=== PATIENT | male | born 1975 | race Asian ===

== ENCOUNTER 2016-12-17 08:59 | Inpatient (IN) | payer OTHER ==
--- NOTE | 2016-12-13 13:23 | CONS ---
DATE OF ADMISSION: 12/17/2016 DATE OF CONSULTATION: 12/12/2016 Patient to have surgery with Dr. Jesús Martinez 12/17/2016. REASON FOR CONSULTATION: Consultation requested by Dr. Jesús Martinez for medical evaluation and c learance of a 40-year-old gentleman about to have surgery on his lumbar spine. Thank you, Dr. Martinez, for allowing us to participate in the care of this patient. HISTORY OF PRESENT ILLNESS: Emi Edmonds a 40-year-old gentleman injury to his back is currently being admitted for correction of the above problem, primarily L4-L5 right microdiskectomy. Other th an his back he has not had any prior surgeries. He has not had any medical hospitalizations, has n ot broken any bones. MEDICATIONS: His only medication is Aleve. ALLERGIES: HE IS NOT ALLERGIC TO ANY MEDICATIONS. His back injury is secondary to a work injury. SOCIAL HISTORY: The patient is , has 2 daughters. He does not smoke. Alcohol socially. He does drink coffee. Has no difficulty sleeping at night and works as a nurse. FAMILY HISTORY: Father at age 37 of an RI. Mother is alive, 62, in good health. One brother and one sister in good health albeit one has some blood pressure issues. There is a family history of heart, cancer and hypertension. No strokes, diabetes or thyroid to his knowledge. REVIEW OF SYSTEMS: HEENT: Periodic migraine headaches. CARDIORESPIRATORY: Denies any chest pain or shortness of breath. GASTROINTESTINAL: No melena or hematemesis. GENITOURINARY: No urgency, frequency. MUSCULOSKELETAL: Positive for back pain. NEUROPSYCHIATRIC: Unremarkable. GENERAL HEALTH: As above. PHYSICAL EXAMINATION: VITAL SIGNS: The patient's blood pressure was 142/90, pulse was 80 and regular, respirations were 1 8, temperature 98.6. Height 64 inches, weight 150 pounds. GENERAL: The patient was noted to be a well-developed, well-nourished male, alert and cooperative, in no apparent acute distress, oriented to time, place, and person. HEAD, EARS, EYES, NOSE AND THROAT: Head was atraumatic. Eyes: Pupils were equal, reactive to ligh t and accommodation. Fundi were benign. Tympanic membranes were unremarkable. Nose was negative. Mouth was unremarkable. Fair oral hygiene was present. NECK: Supple without any rigidity. Trachea was midline. Thyroid was within normal limits. Neck v eins were flat. Carotid pulses were equal. No bruits were heard. BACK: Unremarkable. CHEST: Symmetrical. BREASTS AND AXILLARY: Did not reveal any masses. LUNGS: Clear to percussion and auscultation. HEART: PMI is fifth intercostal space at the midclavicular line. Regular sinus rhythm was noted. No significant murmurs, rubs, or gallops being elicited. ABDOMEN: Soft, good bowel sounds were noted. No significant organomegaly, masses, or tenderness. GENITALIA: Normal male external genitalia. RECTAL AND PROSTATIC: Per PCP. On his right buttock though there was a large mulberry type of skin overgrowth wart versus skin tag, approximately 3+ cm in length. EXTREMITIES: Did not reveal any clubbing, edema or cyanosis. Peripheral pulses were physiologic. SKIN: Moist and warm without any eruptions. No gross lymphadenopathy was noted. NEUROLOGIC: Grossly intact. IMPRESSION: 1. Lumbar disk disease L4-L5. 2. Stable health. DISCUSSION: Review of laboratory and other data revealed the following: The patient's chemistry pa robert revealed normal electrolytes, BUN, creatinine, glucose. Liver function tests revealed an elevat ed ALT of 179, AST of 79 both elevated; however, the patient's bilirubin and alkaline phosphatase wa s normal, possibly liver function tests related to medication or other liver issues. CBC, sed rate, UA, PT and PTT were within normal limits. The patient's EKG was normal as was his chest x-ray. DISCUSSION: Dr. Martinez, I see no contraindication to this patient undergoing current proposed buckley rgery under desired form of anesthesia. We will suggest that may be liver function tests be evaluate d as an outpatient by his primary care physician. Thank you again, Dr. Martinez, for allowing us to participate in the care of this patient. We will follow him with you during his stay at [facility]. Thank you again, Dr. Martinez, for allowing us to participate in the care of this patient. Dictated By: JEANETH BERUMEN/CLINT Conf#: [id number] DID#: [id number]
[2016-12-14 16:07] VITALS: BMI 24.6
[2016-12-17] VITALS (24 sets, daily range): BP systolic 73–166; BP diastolic 42–99; PULSE 88–106; RESP 15–19; Ht 162.6 cm; Wt 69.0 kg
[~2016-12-17] VITALS: Ht 162.6 cm; Wt 69.0 kg
[~2016-12-17 08:59] MED LIST: ESMOLOL 100 MG INJ ONE
[2016-12-17] MEDS ORDERED: LACTATED RINGER'S 1,000 ML IV* SCH (10:00)
[2016-12-17] MEDS ORDERED: CEFAZOLIN 2 GM/50 ML (PMX) 50 ML IVPB SCH (10:00)
[2016-12-17] MEDS ORDERED: PROPOFOL 100 ML ONE (11:40)
[2016-12-17] MEDS ORDERED: ROCURONIUM 50 MG INJ ONE ×2 (11:40→12:59)
[2016-12-17] MEDS ORDERED: MIDAZOLAM 1 MG/ML 2 ML INJ ONE (11:41)
[2016-12-17] MEDS ORDERED: FENTAnyl 50 MCG/ML VIAL ONE ×2 (11:41→13:39)
[2016-12-17] MEDS ORDERED: SURGIFOAM POWDER 1 GM KIT ONE (11:43)
[2016-12-17] MEDS ORDERED: BUPIVACAINE 0.25%/EPI (SDV) 30 ML INJ ONE (11:43)
[2016-12-17] MEDS ORDERED: THROMBIN 5000 UNIT VIAL ONE ×2 (11:44→13:28)
[2016-12-17] MEDS ORDERED: POLYMYXIN/BACITRACIN 1L IRRIG ONE (11:44)
--- NOTE | 2016-12-17 12:21 | HPN ---
Date/Time of Note Date/Time of Note DATE: 12/17/16 TIME: 12:21 Interval H&P Admission Note Pt. seen H&P reviewed: No system changes ANGELICA DOAN MD Dec 17, 2016 12:21
[2016-12-17] MEDS ORDERED: METOCLOPRAMIDE 10 MG INJ ONE (12:37)
[2016-12-17] MEDS ORDERED: ONDANSETRON 4 MG INJ ONE (12:37)
[2016-12-17] MEDS ORDERED: DEXAMETHASONE 4 MG/ML 1 ML INJ ONE (12:37)
[2016-12-17] MEDS ORDERED: CA CHLORIDE 10% 10 ML SYRINGE ONE (12:50)
[2016-12-17] MEDS ORDERED: CEFAZOLIN 1 GM INJ ONE (12:56)
[2016-12-17] MEDS ORDERED: LABETALOL HCL 20MG INJ ONE (12:59)
[2016-12-17] MEDS ORDERED: DIPHENHYDRAMINE 50 MG INJ IV PRN ×2 (13:30→14:30)
[2016-12-17] MEDS ORDERED: METOCLOPRAMIDE 10 MG INJ IV PRN (13:30)
[2016-12-17] MEDS ORDERED: ONDANSETRON 4 MG INJ IV PRN ×2 (13:30→14:30)
[2016-12-17] MEDS ORDERED: morphine (1 MG/ML) 10ML SYRINGE IV PRN ×3 (13:30)
[2016-12-17] MEDS ORDERED: HYDROmorphONE (0.2 MG/ML) 10ML SYG IV PRN ×3 (13:30)
[2016-12-17] MEDS ORDERED: LABETALOL HCL 20MG INJ IV PRN (13:30)
[2016-12-17] MEDS ORDERED: FENTAnyl 50 MCG/ML VIAL IV PRN ×3 (13:30)
[2016-12-17] MEDS ORDERED: MEPERIDINE 25 MG INJ IV PRN (13:30)
[2016-12-17] MEDS ORDERED: NEOSTIGMINE 3 MG/3 ML SYRINGE ONE (13:41)
[2016-12-17] MEDS ORDERED: GLYCOPYRROLATE 1 MG INJ ONE (13:41)
[2016-12-17] MEDS: D5W-0.45 NACL + KCL 20 MEQ 1,000 ML IV SCH ×2 (14:15→16:22)
[2016-12-17] MEDS ORDERED: ALBUTEROL 0.5% (NEB) 2.5 MG/0.5 ML AMP ONE (14:23)
[2016-12-17] MEDS ORDERED: AL HYDROX/MG HYDROX/SIMETH 30 ML CUP PO PRN (14:30)
[2016-12-17] MEDS ORDERED: BISACODYL 10 MG SUPP PR PRN (14:30)
[2016-12-17] MEDS ORDERED: HYDROmorphONE 0.2 MG/ML PCA IV SCH (14:30)
[2016-12-17] MEDS ORDERED: ALBUTEROL 0.083% (NEB) 2.5 MG/3 ML AMP HHN ONE (14:30)
[2016-12-17] MEDS ORDERED: NALOXONE (0.4 MG/ML) INJ IV PRN (14:30)
[2016-12-17] MEDS ORDERED: ZOLPIDEM 5 MG TAB PO PRN (14:30)
[2016-12-17] MEDS ORDERED: ACETAMINOPHEN 325 MG TAB PO PRN (14:30)
[2016-12-17] MEDS ORDERED: CEPASTAT LOZENGE MT PRN (14:30)
[2016-12-17] MEDS ORDERED: HYDROmorphONE 1 MG/ML SYG IV PRN (14:30)
[2016-12-17] MEDS: EPHEDrine SULFATE 50 MG/5 ML SYG IV PRN ×2 (14:31→14:48)
--- NOTE | 2016-12-17 14:41 | OPR ---
DATE OF OPERATION: 12/17/2016 PREOPERATIVE DIAGNOSES: 1. Right L4-5 disk herniation with inferior migration. 2. Radiculopathy. POSTOPERATIVE DIAGNOSES: 1. Right L4-5 disk herniation with inferior migration. 2. Radiculopathy. OPERATION PERFORMED: 1. Right L4-5 hemilaminotomy, partial medial facetectomy and foraminotomy. 2. Right L4-5 lumbar microdiskectomy. 3. Lateral localizing film x2. 4. Use of operative microscope. 5. Intraoperative neuromonitoring (1 hour 15 minutes). SURGEON: Jesús Martinez MD TERMITE EXTERMINATOR HELPER: JUSTICE Smith NEED FOR GROVE SUPERINTENDENT: During this spinal surgical procedure, my school bus driver/teacher assistant was used to retrac t and protect the spinal nerves and dural sac. My school bus driver/teacher assistant also employed the suction catheters to evacuate blood from the surgical field to improve visualization of the neural structures. The steve tant was medically necessary to facilitate the completion of the surgery in a safe and expeditious m raul. [facility] [place] regulations, as well as hospital bylaws, preclude the use of non-license d health care personnel, such as operating room technicians, to perform these functions. FINDINGS: Neuromonitoring at the start of the case revealed right L4 and right L5 amplitude down 50 % each and at the end of the case, nerve signals returned to normal. The patient had a right-sided disk extrusion at L4-5. ESTIMATED BLOOD LOSS: Less than 30 mL. DRAINS: None. SPECIMENS: L4-5 disk was sent to Pathology. COMPLICATIONS OF PROCEDURES: None. ANESTHESIOLOGIST: Jose Granados MD TYPE OF ANESTHESIA: General. INDICATIONS FOR PROCEDURE: This is a 40-year-old gentleman with right lumbosacral radiculopathy in the setting of right-sided disk extrusion at L5-S1. He had failed nonoperative measures; therefore, I recommended proceeding with the above-mentioned surgery. Preoperatively, we discussed the risks, benefits, and alternatives. He understood and wished to proceed. DESCRIPTION OF PROCEDURE IN DETAIL: The patient was identified in the preoperative holding area, [facility], taken to the operating room, where he was successfully placed under general an esthesia. Neuromonitoring leads were placed, sequential compressive devices were applied. Neuromon itoring was utilized during the procedure for 2 hours to include SSEP, MEP, and EMG. This was perfo rmed by [employer]. Start time was 12:55 p.m., closure time was 1:10 p.m. The patient was pl aced on the operating table in prone position over a Magen frame. All bony prominences were well p added. The back was then prepped and draped in usual sterile fashion. Spinal needles were placed a nd lateral localizing films obtained to confirm the correct levels. Once this was confirmed, I inje cted the paraspinal musculature with 0.25% Marcaine and epinephrine. Incision was then made over th e L4-5 level. Incision was taken down to dorsal fascia, which was incised with Bovie cautery. I th en subperiosteally dissected the right L4 lamina. Vanessa retractor was placed. Kerrison was placed in what was felt to be the L4 lamina and repeat lateral films obtained to confirm the correct level s. Once this was confirmed, microscope was brought in and a right-sided hemilaminotomy, partial med ial facetectomy, and foraminotomy was performed. Ligamentum flavum was then sharply dissected. Epi dural vessels were identified and cauterized. I then retracted the neural elements medially and my school bus driver/teacher assistant protected these. I identified the annulus, made an annulotomy followed by limited diskect kaelyn. I removed the herniated fragments. Once this was done, I felt the floor of the canal and ther e were no longer any extruded pieces. All nerve signals returned to normal. Valsalva maneuver was performed and there was no leak of CSF. Hemostasis was achieved with bipolar cautery and Surgifoam. The wound was then irrigated. Epidural catheter was passed through which I injected 100 mcg of fe ntanyl, and the catheter was removed. Peripheral blood was drawn by anesthesiologist spun using the [employer] device. The platelet-poor plasma mixed with thrombin and injected this over the dura for hemostatic purposes. I then closed the deep fascia with #1 Vicryl stitch. I closed subcutaneous ti ssue with 2-0 Vicryl stitch. Microscope was taken off the field. A 4-0 Monocryl closure was then p erformed. Dermabond was then applied. The patient was then awakened from anesthesia and taken to r ecovery room in stable condition. Lap sponges and needle and instrument counts were correct x2. Th ere were no apparent complications during the procedure. The patient will be admitted to the [facility] for routine postoperative care to include pain c ontrol, neurovascular checks, antibiotics, and physical therapy. Dictated By: JESÚS FARIA/CLINT Conf#: [id number] DID#: [id number]
[2016-12-17] MEDS: CEFAZOLIN 1 GM/50 ML (PMX) 50 ML IVPB SCH ×2 (16:22→23:57)
--- NOTE | 2016-12-17 16:28 | RADRPT ---
PROCEDURE: XR lumbosacral Spine CLINICAL INDICATION: Microdiskectomy TECHNIQUE: A single cross-table lateral view was submitted. COMPARISON: None FINDINGS: Instrumentation: Instrumentation is directed from posterior approach towards the superior L5 vertebr al body. Alignment: There is straightening of the normal lordotic curvature to the lumbar spine without subl uxation. Disk spaces: the disk spaces are adequately maintained. Osseous structures: appear intact with no fracture or osseous destruction identified. there is no si gnificant spondylosis. Joint spaces: the facet joints joints appear unremarkable. Soft tissues: appear unremarkable. IMPRESSION: 1. Instrumentation is directed from posterior approach towards the superior L5 vertebral body. 2. Straightening of the normal lordotic curvature. Physician Rossana Date Time Electronically viewed and signed by Physician Rossana on 12/17/2016 16:28 /
--- NOTE | 2016-12-17 16:29 | RADRPT ---
PROCEDURE: XR lumbosacral Spine CLINICAL INDICATION: Microdiskectomy TECHNIQUE: A single cross-table lateral view was submitted. COMPARISON: None FINDINGS: Instrumentation: Superior L5 and the superior L4 vertebral bodies. Alignment: There is straightening of the normal lordotic curvature. Disk spaces: the disk spaces are adequately maintained. Osseous structures: appear intact with no fracture or osseous destruction identified. there is no si gnificant spondylosis. Joint spaces: the facet joints joints appear unremarkable. Soft tissues: appear unremarkable. IMPRESSION: 1. The needles directed from a posterior approach towards the superior L4 and the superior L5 verte bral bodies. 2. Straightening of the normal lordotic curvature. Physician Rossana Date Time Electronically viewed and signed by Physician Rossana on 12/17/2016 16:29 /
--- NOTE | 2016-12-17 17:02 | CONS ---
DATE OF ADMISSION: 12/17/2016 DATE OF CONSULTATION: TYPE OF CONSULTATION: Postoperative consultative followup. REASON FOR ADMISSION: Patient had with Dr. Jesús Martinez 12/17/2016, microdiskectomy. Patient seen postoperatively in the recovery room, still quite groggy in terms of anesthetic effect but is asking and answering questions appropriately. PHYSICAL EXAMINATION: VITAL SIGNS: Revealed the following blood pressure 134/81, pulse 96 and regular , respirations 17, temperature 98 prior to surgery O2 sat 97% on O2. HEENT: Unremarkable. LUNGS: Clear. HEART: Reveals a regular rate. IMPRESSION: 1. Status post lumbar spine surgery. 2. Hepatic dysfunction. DISCUSSION: Plan is to monitor the patient medically with you in terms of his blood pressure and general status and other issues will be dealt with should they arise. Thank you again, Dr. Martinez, for allowing us to participate in the care of this patient. Dictated By: JEANETH BERUMEN/CLINT Conf#: [id number] DID#: [id number] MTDD
[2016-12-17] MEDS: CARISOPRODOL 350 MG TAB PO PRN (21:40)
[2016-12-17] MEDS: DOCUSATE SODIUM 100 MG CAP PO SCH (21:40)
[2016-12-18] MEDS: D5W-0.45 NACL + KCL 20 MEQ 1,000 ML IV SCH ×2 (00:15→10:15)
[2016-12-18 00:48] VITALS: BP 140/82; PULSE 115; RESP 18
[2016-12-18] MEDS ORDERED: traMADol 50 MG TAB PO PRN ×4 (04:30→10:00)
[2016-12-18 05:13] LABS: ADD SCAN DIFF NO
[2016-12-18 05:21] LABS: BASOPHILS % 0.1 % (0.0-2.0); HEMATOCRIT 44.9 % (42.0-52.0); HEMOGLOBIN 14.2 g/dl (14.0-18.0); LYMPHOCYTES # 1.5 10^3/ul (0.8-2.9); LYMPHOCYTES % 8.8 % (15.0-51.0); MEAN CORPUSCULAR HEMOGLOBIN 25.8 pg (29.0-33.0); MEAN CORPUSCULAR HGB CONC 31.6 g/dl (32.0-37.0); MEAN CORPUSCULAR VOLUME 81.6 fl (82.0-101.0); MEAN PLATELET VOLUME 10.8 fl (7.4-10.4); MONOCYTE # 1.3 10^3/ul (0.3-0.9); NEUTROPHIL # 13.7 10^3/ul (1.6-7.5); NEUTROPHILS % 82.5 % (39.0-77.0); PLATELET COUNT 306 10^3/UL (140-415); RED CELL DISTRIBUTION WIDTH 14.3 % (11.5-14.5); WHITE BLOOD COUNT 16.6 10^3/ul (4.8-10.8)
[2016-12-18 05:35] LABS: POTASSIUM 4.3 mmol/L (3.5-5.1)
[2016-12-18 05:37] LABS: CREATININE 0.87 mg/dl (0.61-1.24)
[2016-12-18 05:38] LABS: CALCIUM 9.2 mg/dl (8.4-10.2)
[2016-12-18] MEDS: CARISOPRODOL 350 MG TAB PO PRN (06:12)
[2016-12-18] MEDS ORDERED: KETOROLAC 30 MG INJ IV STA (06:13)
[2016-12-18] MEDS ORDERED: HYDROCODONE/APAP (10/325) TAB PO PRN (07:30)
[2016-12-18] MEDS: HYDROCODONE/APAP (10/325) TAB PO PRN ×2 (07:53→15:13)
[2016-12-18] MEDS: CEFAZOLIN 1 GM/50 ML (PMX) 50 ML IVPB SCH (07:54)
[2016-12-18] MEDS: DOCUSATE SODIUM 100 MG CAP PO SCH (08:37)
[2016-12-18 08:46] VITALS: BP 132/83; RESP 18
--- NOTE | 2016-12-18 09:18 | CONS ---
DATE OF ADMISSION: 12/17/2016 DATE OF CONSULTATION: 12/18/2016 POSTOPERATIVE CONSULT FOLLOWUP TIME SEEN: Approximately 7:40 a.m. HISTORY OF PRESENT ILLNESS: The patient is alert and awake. We discussed his abnormal liver function tests as well as his results of his hepatitis panel. Main complaint today is one of pain since he could not tolerate the Dilaudid. Otherwise, he seems relatively comfortable. PHYSICAL EXAMINATION: VITAL SIGNS: The patient is afebrile, pulse was approximately 100 to 105, respirations 18, blood pressure 140/82, O2 sat 99% on room air. HEENT: Unremarkable. LUNGS: Clear. HEART: Reveals a regular rhythm. ABDOMEN: Slight distention, otherwise unremarkable. IMPRESSION: 1. Status post lumbar spine surgery. 2. History of hyperlipidemia and borderline blood pressure. 3. Hepatic dysfunction. Etiology (?). Review of laboratory and other data reveals the following: The patient's CBC reveals an elevated white count, compatible with steroid use. Chem-7 is within normal limits.Patient had abnormal liver function test pre-op and his hepatitis panels were all negative for A, B, or C. The fact that he was taking 80 mg of Lipitor, which he had discontinued prior to surgery as well as a fair amount of nonsteroidal antiinflammatories, drug-related hepatic dysfunction, probably the primary reason He was advised to follow up with his own primary care physician for appropriate monitoring and further evaluation should it be necessary. Thank you again, Dr. Martinez, for allowing us to participate in the care of this patient. Dictated By: JEANETH BERUMEN/CLINT Conf#: [id number] DID#: [id number] MTDD
[2016-12-18] MEDS ORDERED: traMADol 50 MG TAB PO SCH (09:30)
--- NOTE | 2016-12-18 15:43 | DS ---
DATE OF ADMISSION: 12/18/2016 DATE OF DISCHARGE: 12/18/2016 ADMITTING DIAGNOSIS: Disk herniation. DISCHARGE DIAGNOSIS: Disk herniation. PROCEDURE: Patient is taken to the operating room on 12/17/2016 and underwent lumbar microdiskectom y. HOSPITAL COURSE: The patient admitted to [facility] after undergoing above procedure. His pos toperative course was uncomplicated. By postop day 1, he was deemed stable for discharge with [facility] arranged with the undersigned. Dictated By: ANGELICA DOAN MD BB/CLINT Conf#: [id number] DID#: [id number]
== END 2016-12-18 15:40 | disposition home or self-care (01) | DRG 520 ==
LOC: REC 08:59 → INTOOBSV 08:59 → MS1 15:55 → OBSVTOIN 12-18 14:52
PROVIDERS: ADMIT Specialist; ATTEND Specialist
PROC: 0SB20ZZ Excision of Lumbar Vertebral Disc, Open Approach (ICD-10-PCS; principal; 2016-12-17 12:00)
DX: M51.16 Intervertebral disc disorders with radiculopathy, lumbar region (principal); E78.5 Hyperlipidemia, unspecified; K76.9 Liver disease, unspecified
CPT/HCPCS: 72020; 80048; 83735; 85025; 86999; 94664; 97116; 97162; 97530; 99217; G0378; J0690; J1100; J1170; J1885; J2250; J2405; J2710; J2765; J3010; J3480